=== PATIENT | male | born 1970 | race Caucasian/White ===

== ENCOUNTER → 2019-03-24 | Day surgery (SDC) | payer OTHER ==
--- NOTE | 2019-03-23 14:56 | Pre Op History & Physical ---
CHIEF COMPLAINT: Left neck mass, likely lipoma. HISTORY OF PRESENT ILLNESS: This 48-year-old male was noted to have a lesion in the left neck for many years. The lesion has been increasing in size and irritating to the patient. The patient denies any dysphagia, odynophagia, or shortness of breath. He is a nonsmoker and nondrinker. A CT scan of the neck that was performed showed the patient has a 2 cm lesion in the subcutaneous region in the left anterior neck, inferior to the mandible. REVIEW OF SYSTEMS: System review showed no recent cardiovascular, respiratory, or GI problem. PAST MEDICAL HISTORY: The patient has a history of hypertension. PAST SURGICAL HISTORY: He has no previous surgery. ALLERGIES: HE HAS NO ALLERGIES TO MEDICATIONS. MEDICATIONS: He is on blood pressure medicines. SOCIAL HISTORY: He is a nonsmoker and nondrinker. FAMILY HISTORY: Noncontributory. PHYSICAL EXAMINATION: VITAL SIGNS: On examination, the patient's vital signs were within normal limits. HEENT: Ears; TMs are normal tympanic membranes bilaterally. Nasal exam showed deviated nasal septum on right side about 30%. Oropharynx and oral cavity showed 1+ tonsils bilaterally with no exudate or debris. He is Mallampati level 2. NECK: No lymph node palpable. He has a subcutaneous mass of the left in the submandibular triangle on the left side about 3 x 2 cm. No other mass was palpable. CHEST: Air entry bilaterally. CARDIOVASCULAR: Showed S1, S2. No murmur noted. 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 This has been increasing in size and irritating to the patient. The suggested treatment is excisional biopsy of the lesion with appropriate closure. The complication of procedure includes, but not limited to bleeding, infection, and excision of injury, great toe recurrent nerve injury, wound breakdown, poor cosmetic result, persistent and recurrence of the lesion. Alternatives will be continue observation, continue antibiotic therapy, topical nasal steroid therapy, and needle aspiration of the area. The patient has elected to undergo surgical procedure. MD IVORY Chawla/JAME /[id number]
[~2019-03-24] MED LIST: ACETAMINOPHEN 1000 MG/100 ML 100 ML IV ONE; DEXAMETHASONE SOD PHOS INJ 4 MG/ML VIAL ONE; FENTANYL CITRATE/PF 100MCG/2 ML INJ ONE; LIDOCAINE 1% W/EPINEPHRINE 20 ML VIAL ONE; LIDOCAINE HCL (LTA) 4 ML SOLN ONE; LIDOCAINE HCL 2% JELLY 5 ML TUBE ONE; LIDOCAINE HCL 2% LOCAL INJ 5 ML SDV VIAL INJ ONE; LIPITOR20 MG PO; LOSARTAN POTAS100 MG PO; MIDAZOLAM HCL 2 MG/2 ML VIAL ONE; NEOSTIGMINE 1 MG/ML 10ML VIAL ONE; ONDANSETRON HCL INJ 2MG/ML 2ML 2 MG/ML VIAL ONE; PROPOFOL IV EMULSION 10 MG/ML 20 ML VIAL ONE; SEVOFLURANE INHAL SOLN 250 ML PEN BTL ONE
[2019-03-24 12:10] VITALS: BP 113/64
--- NOTE | 2019-03-24 17:44 | Operative Report ---
DATE OF PROCEDURE: 03/24/2019 SURGEON: Allen Turner MD PREOPERATIVE DIAGNOSIS: Left neck mass. POSTOPERATIVE DIAGNOSIS: Left neck mass. PROCEDURE PERFORMED: Excision of left neck mass with appropriate closure. ANESTHESIA: Anesthesiology group. INDICATIONS: This 48-year-old male has a lesion in the left submandibular triangle for over a year. The lesion has been increasing in size and irritating to the patient. CT scan of the neck showed that the lesion is a lipoma. The size of the defect was about 2-3 cm. It was decided excision of lesion with appropriate closure and other necessary procedure will be beneficial for him. DESCRIPTION OF PROCEDURE: The patient was taken to the operating room, put under general anesthesia, endotracheally intubated. The incision was marked out about 2 fingerbreadths from the margin of the mandible, just inferior to the lesion. The area was injected with 1% Xylocaine with 1:100,000 epinephrine for hemostasis. Dissection was carried down to the subcutaneous plane. The superior flap was elevated in the subcutaneous plane. The lesion come into view. The lesion was a lipoma. This was dissected off from the subcutaneous tissue. Care was taken during the dissection not to buttonhole or disturb any neurovascular structures. After the lesion was dissected off, the area was irrigated with copious amount of normal saline. The lipoma bed was not very vascular and it was decided that a drain would not be required. The area was irrigated with copious amount of normal saline. The deep layer was closed using 4-0 Vicryl suture in the interrupted fashion. Skin incision was closed using 4-0 Monocryl suture in interrupted fashion. Pressure dressing was applied. The patient tolerated the above procedure well with minimal blood loss. He was given 20 mg of Decadron intraoperatively. The patient was able to be transferred to recovery room in stable condition. Allen Turner MD DKH/MODL /[id number]
== END | disposition home or self-care (01) ==
LOC: OR 08:34 → EDSEX 13:00
PROVIDERS: ATTEND Otolaryngology Otolaryngology/Facial Plastic Surgery
DX: D17.0 Benign lipomatous neoplasm of skin and subcutaneous tissue of head, face and neck (principal); I10 Essential (primary) hypertension; K21.9 Gastro-esophageal reflux disease without esophagitis
CPT/HCPCS: 21552; 88304; 93005; J0131; J1100; J2001 ×2; J2250; J2405; J2704; J2710; J3010